=== PATIENT | male | born 1945 | race Caucasian/White ===

== ENCOUNTER 2017-11-24 07:59 | Observation (INO) | payer OTHER ==
[~2017-11-24] VITALS: Ht 177.8 cm; Wt 88.0 kg
[2017-11-24 08:00] VITALS: BP 93/63
[2017-11-24 08:13] LABS: ABSOLUTE EOSINOPHILS 0.3 thou/uL (0.0-0.7); ABSOLUTE LYMPHOCYTES 3.3 thou/uL (0.8-5.3); ABSOLUTE MONOCYTES 0.9 thou/uL (0.0-1.2); ABSOLUTE NEUTROPHILS 8.7 thou/uL (1.6-8.1); BASOPHILS 0.4 %; EOSINOPHILS 2.2 %; HEMATOCRIT 42.2 % (42.0-52.0); HEMOGLOBIN 14.5 gm/dL (14.0-18.0); LYMPHOCYTES 25.1 %; MCH 28.5 pg (26.0-34.0); MCHC 34.3 g/dL (28.0-37.0); MCV 83.2 fL (80.0-100.0); MONOCYTES 6.9 %; MPV 7.2 fl. (7.2-11.1); NUCLEATED RBCS 0 /100WBC; PLATELET COUNT* 139 thou/uL (150-400); POLYS 65.4 %; RBC 5.07 mil/uL (4.50-6.00); RDW-CV 13.8 % (10.5-14.5); WBC 13.3 thou/uL (4.0-11.0)
[2017-11-24 08:21] LABS: CALCIUM 8.8 mg/dL (8.5-10.1); CREATININE 1.4 mg/dL (0.6-1.3); POTASSIUM 3.6 mmol/L (3.5-5.1)
[2017-11-24 08:26] LABS: ALBUMIN 3.7 g/dL (3.4-5.0); TOTAL BILIRUBIN 0.5 mg/dL (<0.1-1.0); TOTAL PROTEIN 7.9 g/dL (6.4-8.2)
[2017-11-24 08:47] LABS: APTT 26.4 Seconds (25.0-31.3); INR 1.1; PROTIME 10.7 Seconds (9.20-11.50)
--- NOTE | 2017-11-24 09:01 | NUR ---
PT'S DATE OF ON STICKERS AND ARM BAND WERE INCORRECT. NEW STICKERS WERE PLACED IN ROOM. ARM BAND WITH CORRECT DATE OF APPLIED TO PATIENT'S LEFT WRIST. INCORRECT STICKERS AND ARM BAND WERE DISCARDED.
[2017-11-24 11:29] VITALS: BP 108/65
[2017-11-24 11:54] VITALS: BP 109/59
--- NOTE | 2017-11-24 12:09 | NUR ---
PT ADMITTED AROUND 1145 TO UNIT PT STATES HE WAS IN QUICK TRIP BATHROOM FELT DIZZY AND WOKE UP TO SOMEONE STANDING OVER HIM PT HIT BACK OF HEAD NO WOUNDS OR OPEN AREA NOTED PT HAS LUMP AND SLIGHT BRUISING IN RIGHT EYE IN THE CREASE, PT DENIES PAIN OR SOA ON 2L/NC PT HAS NO HOME MEDICATIONS PT IS A FALL RISK BED ALARM IS ON, PT IS ALERT AND ORIENTED X 4 PT IS SR ON THE MONITOR, PT IS PLEASANT AND COOPERATIVE PT STATES HE IS ALLERGIC TO CATS, WILL CONTINUE TO MONITOR
--- NOTE | 2017-11-24 15:21 | EKG ---
[place] [address] ELECTROCARDIOGRAM REPORT Name: NICKOLAS DENNISON Room: [place] [address] ADM IN .R.#: [id number] Admission: 11/24/17 Attend Phys: Sebastian Chicas Discharge: Date of : 41 Report #: [id number] THIS REPORT FOR: //name// [facility] ED Test Date: 2017-11-24 Test Time: 08:34:16 Pat Name: NICKOLAS DENNISON Department: Room: [facility] Gender: Automotive Sales Professional: Destiney LAW : 1945 Requested By: Evy Sifuentes Order Number: [id number] MD: Pipe Sierra Measurements Intervals Kirk Rate: 98 P: 34 IA: 170 QRS: 18 QRSD: 135 T: 7 QT: 361 QTc: 461 Interpretive Statements Sinus rhythm IVCD, consider atypical RBBB Probable inferior infarct, old No previous ECG available for comparison Electronically Signed On 11-24-2017 15:21:31 COLLECTIONS REP by Pipe Sierra [email or web address] <ELECTRONICALLY SIGNED> By: Pipe Sierra MD, [facility] 11/24/17 1521 0834 0834 Pipe Sierra MD, [facility] /EPI
[2017-11-24 15:51] LABS: URINE BILIRUBIN NEGATIVE (Negative); URINE BLOOD NEGATIVE (Negative); URINE CLARITY CLEAR; URINE COLOR YELLOW; URINE GLUCOSE-RANDOM NEGATIVE (Negative); URINE KETONES NEGATIVE (Negative); URINE LEUKOCYTES-REFLEX NEGATIVE (Negative); URINE NITRITE-REFLEX NEGATIVE (Negative); URINE PROTEIN TRACE (Negative); URINE SPECIFIC GRAVITY 1.015 (1.005-1.030); URINE UROBILINOGEN 0.2 E.U./dl (0.2-1.0)
[2017-11-24 16:00] VITALS: BP 106/57
[2017-11-24 20:00] VITALS: BP 103/58
[2017-11-25] VITALS: BP 144/81
[2017-11-25 04:03] VITALS: BP 125/80
--- NOTE | 2017-11-25 06:19 | NUR ---
ASSUMED CARE AT 1999, ASSESSMENT CHARTED. PATIENT ALERT/ORIENTED X4, RESTING IN BED. VOIDING PER URINAL. UP WITH ASSIST. DENIES PAIN OR NEEDS. BRUISING NOTED TO RIGHT EYE. BED ALARM ON. CALL LIGHT WITHIN REACH, ENCOURAGED TO CALL FOR NEEDS.
[2017-11-25 09:00] VITALS: BP 108/62
[2017-11-25 11:25] VITALS: BP 111/55; BP 112/62; BP 113/56
--- NOTE | 2017-11-25 12:30 | NUR ---
MET WITH PT TO DISCUSS HOME SITUATION/DC PLANNING. 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 HAD SYNCOPAL EPISODE YESTERDAY AND STATES 'I SHOULD HAVE JUST GONE BACK TO MY CAR.' PT STATES HE'S HAD 3 EPISODES OF 'DIZZINESS' IN HIS LIFE. PT DENIES ANY NEEDS AND HOPES TO GO HOME TODAY
[2017-11-25 15:50] VITALS: BP 108/62
--- NOTE | 2017-11-25 15:52 | NUR ---
ASSUMED PT CARE AT 0700 PT IS ALERT AND ORIENTED X 4 PT DENIES PAIN OR SOA ON RA, PT IS UP WITH SBA, PT WILL DISCHARGE TODAY DR CLAUDIO WANTS PT TO HAVE EVENT MONITOR THIS NURSE CALLED CARDIOLOGY WHO NOTIFIED THIS NURSE THAT PT PRIMARY CARE PHYSICIAN WILL HAVE TO ORDER AND SEND ORDER TO CARDIOLOGY GROUP THIS NURSE INFORMED PT OF THIS INFORMATION WHO IS LOCATING A PRIMARY PHYSICIAN SINCE PT DOES NOT HAVE ONE, WILL CONTINUE TO MONITOR
--- NOTE | 2017-12-05 15:56 | CON ---
[address] [address] CONSULTATION Name: NICKOLAS DENNISON Room: [address] Susan Chaudhry#: [id number] Admission: 11/24/17 Attend Phys: Sebastian Chicas Discharge: 11/25/17 Date of : 41 Report #: [id number] THIS REPORT FOR: //name// CC: [facility] physician/PCP Justin Curtis DATE OF SERVICE: 11/24/2017 HISTORY OF PRESENT ILLNESS: This is a 72-year-old male patient who was evaluated by me to evaluate the patient for any neurological etiology for the patient's spell. He indicated that he had 3 spells. One was about 15 years ago. He started feeling dizzy and he was dizzy for about 3 days. It was a constant dizziness. He was seen by his family doctor who sent him to an ENT specialist. They indicated it may have been of ENT pathology. He did have an MRI at that time, which was unremarkable. He had another spell about 5 years ago and he was able to concentrate and did not seek any medical attention. This spell happened this morning, he was feeling dizzy and he still tried to get up and passed out. He hit his head, but he is feeling better now than he felt this morning. He did have a CT scan of the head and that was unremarkable. REVIEW OF SYSTEMS: Indicate that this patient hit his head, he is not having any neck pain. He had these spells in the past. He indicates otherwise he is pretty healthy and he did have a treadmill about 12 years ago, but did not have any recent cardiac evaluation. He does have a black eye on the right side. He is not complaining of any cardiac, respiratory, GI, , musculoskeletal, constitutional, dermatological, hematological, psychiatric, endocrine, allergic or throat symptom associated with present symptomatology. PAST MEDICAL HISTORY: Positive for these spells as described above. FAMILY HISTORY: Negative for epilepsy. SOCIAL HISTORY: He does not drink alcohol. PHYSICAL EXAMINATION: Indicate he is alert. He is responsive. He can follow simple command. His speech, concentration, fund of knowledge and memory is at his baseline. Cranial nerve examination 2-12 was unremarkable. He has a symmetrical strength, sensation, reflexes and tones in all 4 extremities. He does not have any cerebellar sign or papilledema. There is no meningeal sign. There is no carotid bruit. He is a very well developed individual who does not have any dysmorphic features of eyes, ears and face. His pulses are palpable. He has no edema, cyanosis or jaundice. His blood pressure is 109/59, respiration is 16, pulse is 93, temperature is 98.2. His respiratory examination does not show any respiratory difficulty or rhonchi. His cardiac examination does not show any irregularity or any abnormality which can explain the [place] [address] CONSULTATION Name: NICKOLAS DENNISON Room: [place] [address] MARISA Chaudhry#: [id number] Admission: 11/24/17 Attend Phys: Sebastian Chicas Discharge: 11/25/17 Date of : 41 Report #: [id number] LABORATORY DATA: Indicate a white count of 13.3 and a GFR of 50. He did have a CT scan of the head which was unremarkable. IMPRESSION: It is unlikely that there is any neurological etiology for the patient's symptoms. More common etiology for the patient's symptoms is going to be either ENT pathology or any cardiac etiology. I will do some workup in this patient for ruling out any ENT pathology, but I will suggest getting ENT and cardiac specialty involve in this patient to determine the etiology of the patient's symptoms. Further management and any restrictions on his activity need to be decided by them until neurology workup show any etiology because it is unlikely that there is any neurological etiology for the patient's symptoms. RECOMMENDATIONS: 1. I will get the MRI of the brain and MRA. 2. I will get an EEG. 3. I will suggest working him up for ENT and cardiac cause for his symptoms and managing accordingly. Thank you very much for this referral and I discussed all of it with the patient in detail. <ELECTRONICALLY SIGNED> By: Daniel Mccracken MD 12/05/17 1556 1702 [id number] Mccracken MD /nt
== END 2017-11-25 16:58 | disposition home or self-care (01) ==
LOC: EDBD 07:59 → M.ERS 07:59 → M.2W 10:13 → M.TBA-ER 10:13 → M.2W 11:37
PROVIDERS: Personal Emergency Response Attendant; ADMIT Internal Medicine
DX: R55 Syncope and collapse (principal); R42 Dizziness and giddiness; I95.9 Hypotension, unspecified